=== PATIENT | female | born 1975 | race Hispanic/Latino ===

== ENCOUNTER → 2017-04-08 | Outpatient (CLI) | payer OTHER ==
[~2017-04-08] MED LIST: ETAN50PE SQ; FOLI1TAB15 PO; METH25VI IJ; PRED2.5T PO; [UNRECOGNIZED DRUG - OTHER] PO
== END | disposition home or self-care (01) ==
LOC: SHCH 13:56
PROVIDERS: ATTEND Internal Medicine Cardiovascular Disease
DX: R07.9 Chest pain, unspecified (principal)
CPT/HCPCS: 93306

== ENCOUNTER → 2017-04-15 | Outpatient (CLI) | payer OTHER ==
[~2017-04-15] VITALS: Ht 172.7 cm; Wt 99.8 kg
[~2017-04-15] MED LIST changes: +REGADENOSON 0.4 MG/5 ML PF SYG IVP SCH
== END | disposition home or self-care (01) ==
LOC: SHCH 08:20
PROVIDERS: ATTEND Internal Medicine Cardiovascular Disease
DX: R07.9 Chest pain, unspecified (principal)
CPT/HCPCS: 78452; 93017; 96374; A9500 ×2; J2785

== ENCOUNTER 2018-02-23 13:19 | Emergency (ER) | payer OTHER ==
[~2018-02-23 13:19] MED LIST changes: -REGADENOSON 0.4 MG/5 ML PF SYG IVP SCH
[2018-02-23 14:47] LABS: BASOPHILS % (AUTO) 0.5 % (0.0-5.0); EOSINOPHILS % (AUTO) 1.5 % (0.0-8.0); HEMATOCRIT 33.2 % (36-48); LYMPHOCYTES % (AUTO) 18.2 % (21.0-51.0); MEAN CORPUSCULAR HEMOGLOBIN 26.2 pg (27.0-33.0); MEAN CORPUSCULAR HGB CONC 32.5 g/dL (32.0-36.0); MEAN CORPUSCULAR VOLUME 80.5 fL (79-99); MONOCYTES % (AUTO) 8.3 % (3.0-13.0); NEUTROPHILS % (AUTO) 71.5 % (40.0-77.0); PLATELET COUNT (AUTO) 222 K/uL (130-400); RED BLOOD CELL COUNT(AUTO) 4.13 MIL/uL (4.00-5.50); RED CELL DISTRIBUTION WIDTH 16.7 % (11.0-15.5); WHITE BLOOD COUNT (AUTO) 7.7 K/uL (4.8-10.8)
[2018-02-23 15:04] LABS: CREATININE 0.9 mg/dL (0.5-1.5); POTASSIUM 3.9 mmol/L (3.5-5.1)
[2018-02-23 15:08] LABS: ALBUMIN 3.1 g/dL (3.5-5.0); BILIRUBIN,DIRECT 0.1 mg/dL (0.0-0.3); BILIRUBIN,TOTAL 0.3 mg/dL (0.2-1.0); TOTAL PROTEIN, SERUM 7.6 g/dL (6.0-8.3)
[2018-02-23] MEDS ORDERED: METHYLPREDNISOLONE SOD SUCC 40MG/ML 1ML ONE (15:26)
[2018-02-23] MEDS ORDERED: MORPHINE SULFATE 4 MG/1ML SYG ONE (15:35)
[2018-02-23] MEDS ORDERED: ONDANSETRON HCL 4 MG/2 ML VIAL ONE (15:35)
[2018-02-23 17:40] LABS: APPEARANCE,URINE Clear (CLEAR); BILIRUBIN,URINE Negative (NEGATIVE); COLOR,URINE Yellow (YELLOW); GLUCOSE, URINE (UA) >=1000 mg/dL (NEGATIVE); KETONES,URINE Negative (NEGATIVE); LEUKOCYTE ESTERASE ,URINE Trace (NEGATIVE); NITRATE,URINE Negative (NEGATIVE); OCCULT BLOOD,URINE Small (NEGATIVE); PH,URINE 5.5 (5.0-8.0); PROTEIN,URINE Negative (NEGATIVE); UROBILINOGEN,URINE 0.2 mg/dL (0.2-1.0)
[2018-02-23 17:41] LABS: HCG,QUAL RESULT NEGATIVE (NEGATIVE)
[2018-02-23 18:20] LABS: BACTERIA,URINE Rare /HPF (None Seen)
== END 2018-02-23 18:52 | disposition home or self-care (01) ==
LOC: EDH 13:19
DX: M06.9 Rheumatoid arthritis, unspecified (principal); M79.602 Pain in left arm; E11.9 Type 2 diabetes mellitus without complications; Z90.49 Acquired absence of other specified parts of digestive tract
CPT/HCPCS: 36415; 72125; 80048; 80076; 81001; 81025; 82550; 83690; 84484 ×2; 85025; 85651; 86140; 93005 ×2; 96374; 96375; 99284; J2270; J2405; J2920

== ENCOUNTER 2018-09-16 19:00 | Emergency (ER) | payer OTHER ==
[2018-09-16 19:49] LABS: BASOPHILS % (AUTO) 0.8 % (0.0-5.0); EOSINOPHILS % (AUTO) 1.5 % (0.0-8.0); HEMATOCRIT 30.2 % (36-48); LYMPHOCYTES % (AUTO) 16.9 % (21.0-51.0); MEAN CORPUSCULAR HEMOGLOBIN 23.1 pg (27.0-33.0); MEAN CORPUSCULAR HGB CONC 31.8 g/dL (32.0-36.0); MEAN CORPUSCULAR VOLUME 72.6 fL (79-99); NEUTROPHILS % (AUTO) 69.8 % (40.0-77.0); NUCLEATED RED BLOOD CELLS 0.1 % (0.0-0.19); PLATELET COUNT (AUTO) 192 K/uL (130-400); RED BLOOD CELL COUNT(AUTO) 4.17 MIL/uL (4.00-5.50); RED CELL DISTRIBUTION WIDTH 19.2 % (11.0-15.5); WHITE BLOOD COUNT (AUTO) 7.3 K/uL (4.8-10.8)
[2018-09-16 20:01] LABS: CARBON DIOXIDE 23 mmol/L (21-32); CHLORIDE 98 mmol/L (101-111); GLOMERULAR FILTR. RATE CALC 65 mL/min (>60); GLUCOSE,RANDOM 374 mg/dL (70-105); POTASSIUM 3.6 mmol/L (3.5-5.1); SODIUM SERUM 132 mmol/L (136-145); UREA NITROGEN, BLOOD 16 mg/dL (7-18)
[2018-09-16 20:02] LABS: INR 0.94 (0.85-1.15); PARTIAL THROMBOPLASTIN TIME 21.6 SEC (26.3-35.5); PROTHROMBIN TIME 9.9 SEC (9.6-11.6)
[2018-09-16 20:08] LABS: APPEARANCE,URINE Clear (CLEAR); BILIRUBIN,URINE Negative (NEGATIVE); COLOR,URINE Yellow (YELLOW); GLUCOSE, URINE (UA) >=1000 mg/dL (NEGATIVE); KETONES,URINE Negative (NEGATIVE); LEUKOCYTE ESTERASE ,URINE Trace (NEGATIVE); NITRATE,URINE Negative (NEGATIVE); OCCULT BLOOD,URINE Negative (NEGATIVE); PH,URINE 5.5 (5.0-8.0); PROTEIN,URINE POS 1+ mg/dL (NEGATIVE); UROBILINOGEN,URINE 0.2 mg/dL (0.2-1.0)
[2018-09-16 20:11] LABS: ALANINE AMINOTRANSFERASE 31 U/L (12-78); ALBUMIN 2.9 g/dL (3.5-5.0); AMYLASE 27 U/L (25-115); ASPARTATE AMINOTRANSFERASE 26 U/L (10-37); BILIRUBIN,TOTAL 0.3 mg/dL (0.2-1.0); CREATINE KINASE, TOTAL 69 U/L (21-232); HCG,QUANTITATIVE 1 mIU/mL (0-5); LIPASE 142 U/L (114-286)
[2018-09-16 20:21] LABS: BACTERIA,URINE Rare /HPF (None Seen); RBC,URINE 0-1 /HPF (0-1); SQUAMOUS EPITHELIAL CELL,UR Few /HPF (0-2)
[2018-09-16 20:24] LABS: ALCOHOL, BLOOD < 3 mg/dL (0-10)
[2018-09-16] MEDS ORDERED: KETOROLAC TROMETHAMINE 30MG/ML ONE (22:45)
[2018-09-16] MEDS ORDERED: SODIUM CHLORIDE 0.9% 1000ML 1,000 ML IV ONE (22:46)
== END 2018-09-17 00:10 | disposition home or self-care (01) ==
LOC: EDH 19:00
DX: R07.9 Chest pain, unspecified (principal); E11.65 Type 2 diabetes mellitus with hyperglycemia; R51 Headache; D64.89 Other specified anemias; M25.521 Pain in right elbow; M06.9 Rheumatoid arthritis, unspecified; I10 Essential (primary) hypertension; V49.59XA Passenger injured in collision with other motor vehicles in traffic accident, initial encounter; Y93.89 Activity, other specified; Y92.481 Parking lot as the place of occurrence of the external cause; Y99.8 Other external cause status
CPT/HCPCS: 36415; 71045; 80053; 81001; 82150; 82550; 83690; 84484; 84702; 85025; 85610; 85730; 93005; 96361; 96374; 99285; G0480; J1885; J7030

== ENCOUNTER 2019-02-09 04:13 | Emergency (ER) | payer OTHER ==
[~2019-02-09 04:13] MED LIST changes: -ETAN50PE SQ; +ETAN50PE3 SQ
[2019-02-09] MEDS ORDERED: CLINDAMYCIN HCL 150 MG CAP ONE (05:29)
== END 2019-02-09 05:42 | disposition home or self-care (01) ==
LOC: EDH 04:13
DX: N61.1 Abscess of the breast and nipple (principal); E11.9 Type 2 diabetes mellitus without complications; I10 Essential (primary) hypertension; M19.90 Unspecified osteoarthritis, unspecified site; M06.9 Rheumatoid arthritis, unspecified; Z90.49 Acquired absence of other specified parts of digestive tract

== ENCOUNTER 2024-02-14 15:55 | Emergency (ER) | payer BC ==
[~2024-02-14] VITALS: Ht 172.7 cm; Wt 74.8 kg
[~2024-02-14 15:55] MED LIST changes: +ATEN50TA PO; +INSLAN SQ; +LEFL20TA22 PO; +MAG-55 PO; +METF-444 PO; +OMEP40CA21 PO; +PANT40TA54 PO; +PRED5TAB PO
[2024-02-14 15:59] VITALS: BP 125/79
--- NOTE | 2024-02-14 16:05 | ERN ---
ED Note History of Present Illness Stated Complaint: FLU A Chief Complaint: Cough Time Seen by : 15:57 Dictation: PATIENT IS A 48-YEAR-OLD FEMALE COMING IN HERE WITH SHORTNESS A BREATH COUGH AND BODY ACHES SHE HAS HAD FOR 7-8 DAYS. NO NAUSEA NO VOMITING. SHE STATES SHE SAW HER PRIMARY CARE DOCTOR TODAY WHO DIAGNOSED HER WITH INFLUENZA A BUT ADVISED HER TO COME TO THE EMERGENCY ROOM DUE TO HER CONDITIONS OF DIABETES HYPERTENSION AND RA AND SHE IS VERY WEAK. PATIENT IS TACHYCARDIC IN TRIAGE, HEART RATE 1AND APPEARS VERY ILL. PERSISTENT COUGH NOTED. 3 Allergies: Coded Allergies: No Known Drug Allergies (Verified Allergy, 11/13/12) Home Meds Active Scripts Benzonatate (Tessalon Perles) 100 Mg Cap, 200 MG PO TID for cough, #60 CAP 0 Refills Prov:FUAD VIDALES AMUSEMENT EQUIPMENT OPERATOR 02/14/24 Oseltamivir Phosphate (Tamiflu) 75 Mg Cap, 1 CAP PO BID for 5 Days, #10 CAP 0 Refills Prov:FUAD VIDALES AMUSEMENT EQUIPMENT OPERATOR 02/14/24 Albuterol Sulfate (Ventolin Hfa/Proventil Hfa/Proair Hfa) 90 Mcg Puff, 2 PUFF IH Q4H for WHEEZING, #1 INHALER 0 Refills Prov:FUAD VIDALES NP 02/14/24 Metformin HCl (Metformin HCl) 500 Mg Tablet, 500 MG PO BID, #60 TAB Prov:CHERY SALEEM MD 04/28/23 Insulin Glargine,Hum.rec.anlog (Lantus) 100 Unit/Ml Inj, 15 UNITS SQ DAILY, #100 ML Prov:CHERY SALEEM MD 04/28/23 Omeprazole (Omeprazole) 40 Mg Capsule., 40 MG PO DAILY, #30 CAP Prov:CHERY SALEEM MD 04/28/23 Mag Hydrox/Al Hydrox/Simeth (Maalox Maximum Strength Susp) 400 Mg-400 Mg-40 Mg/5 Ml Oral.susp, 20 ML PO QID, #250 ML Prov:CHERY SALEEM MD 04/28/23 Reported Medications Pantoprazole Sodium (Pantoprazole Sodium) 40 Mg Tablet.dr, 40 MG PO AM, TAB 04/28/23 Atenolol (Atenolol) 50 Mg Tablet, 50 MG PO HS, TAB 3/17/24 Prednisone (Prednisone) 5 Mg Tablet, 5 MG PO HS, TAB 04/28/23 Leflunomide (Leflunomide) 20 Mg Tablet, 20 MG PO HS, TAB 04/28/23 Metformin HCl (Metformin HCl) 500 Mg Tablet, 500 MG PO HS, TAB 04/28/23 Insulin Glargine,Hum.rec.anlog (Lantus) 100 Unit/Ml Inj, 50 UNITS SQ AM, ML 04/28/23 Etanercept (Enbrel) 50 Mg/1 Ml Pen.injctr, 50 MG SQ ONCE WEEKLY, KIT 03/01/15 Methotrexate Sodium/Pf (Methotrexate 250 mg/10 ml Vial) 25 Mg/1 Ml Vial, 25 MG IJ ONCE A WEEK, VIAL 03/01/15 Folic Acid (Folic Acid) 1 Mg Tablet, 1 MG PO DAILY, TAB 03/01/15 Prednisone (Prednisone) 2.5 Mg Tablet, 2.5 MG PO DAILY, TAB 03/01/15 [Hydroxyclor] No Conflict Check, 200 MG PO BID 03/01/15 Past Medical History Past Medical History: Diabetes-Type I, Diabetes-Type II, Hypertension, Other Additional Past Medical Hx: RA, gastroparesis Surgical History: Cholecystectomy Family History: DM, HTN Social History: Negative, Lives with family History: Not Applicable RN Note Reviewed/Agreed w/PFSH: Yes Review of System Dictation CONSTITUTIONAL: NEGATIVE EXCEPT FOR HPI FEVER CHILLS WEAKNESS HEAD/FACE: NEGATIVE EXCEPT FOR HPI EENT: NEGATIVE EXCEPT FOR HPI CLEAR RHINITIS RESPIRATORY: NEGATIVE EXCEPT FOR HPI PERSISTENT COUGH GASTROINTESTINAL/ABDOMINAL: NEGATIVE EXCEPT FOR HPI GENITOURINARY: NEGATIVE EXCEPT FOR HPI MUSCULOSKELETAL: NEGATIVE EXCEPT FOR HPI INTEGUMENTARY: NEGATIVE EXCEPT FOR HPI NEUROLOGICAL/PSYCH: NEGATIVE EXCEPT FOR HPI HEMATOLOGIC/LYMPHATIC: NEGATIVE EXCEPT FOR HPI ALL SYSTEMS NEGATIVE, EXCEPT NOTED ABOVE. 13 POINT REVIEW OF SYSTEMS ASSESSED AND ALL NEGATIVE EXCEPT FOR ABOVE. Initial Vital Sign VS Vital Signs Date Time Temp Pulse Resp B/P (MAP) Pulse Ox O2 Delivery O2 Flow Rate FiO2 02/14/24 15:59 99.9 135 20 125/79 94 Room Air 0 02/14/24 18:49 21 Physical Exam Dictation VITAL SIGNS REVIEWED GENERAL APPEARANCE: ALERT, ORIENTED X 3, MODERATE ACUTE DISTRESS, WELL DEVELOPED, NOURISHED. HEAD AND FACE: NON-TRAUMATIC. EYES: PERRL, PINK CONJUNCTIVAS, EYELID NO TRAUMA, ANTERIOR CHAMBER WITH ARCUS SENILIS. EARS: PINNAS INTACT AND NO SIGNS OF TRAUMA OR ERYTHEMA EAR CANALS CLEAR AND NO DISCHARGE TM NO ERYTHEMA NOSE: DISCHARGE, NO BLEEDING. OROPHARYNX: MOUTH NORMAL, TONGUE PINK, PHARYNX CLEAR, MILD PHARYNGEAL ERYTHEMA, TONSILS NO EXUDATES, NO ABSCESSES NOTED, MUCOUS MEMBRANE MOIST UV[place]A MIDLINE VOICE IS CLEAR NECK: SUPPLE, NON-TENDER, NO THYROMEGALY, NO MASSES, NO JVD, NO BRUITS BREAST:DEFERRED CHEST:NO TENDERNESS, NO CREPITUS, NO PARADOXICAL MOVEMENT, NO RETRACTIONS LUNGS:CLEAR, WELL-VENTILATED, SYMMETRIC, MILD TACHYPNEA, BILATERAL BREATH SOUNDS CLEAR TO AUSCULTATION DIMINISHED BASES HEART: REGULAR RATE, REGULAR RHYTHM, NO MURMUR, NO GALLOPS VASCULAR: NO PERIPHERAL EDEMA, ABDOMEN: SOFT, POSITIVE BOWEL SOUNDS, NONDISTENDED, NO GUARDING, NONTENDER, NO REBOUND, NO MASSES NO HEPATOMEGALY, NO SPLENOMEGALY, NO LÓPEZ'S SIGN, NO HERNIAS. RECTAL: DEFERRED GENITAL: DEFERRED NEUROLOGICAL: NORMAL SPEECH, MOTOR FUNCTION INTACT, SENSORY FUNCTION INTACT MUSCULOSKELETAL: NECK NONTENDER, FULL RANGE OF MOTION, BACK NONTENDER, FULL RANGE OF MOTION, EXTREMITIES: NONTENDER, FULL RANGE OF MOTION SKIN: COLOR PINK, DRY, NO TURGOR, NO RASH, NO LACERATIONS, NO ABRASIONS, NO CONTUSIONS. LYMPHATIC: DEFERRED Results (Laboratory/Radiology) Laboratory/Radiology Laboratory Tests Test 02/14/24 16:10 02/14/24 16:54 02/14/24 18:01 02/14/24 18:26 White Blood Count 3.8 K/uL (4.8-10.8) L Red Blood Count 4.21 MIL/uL (4.00-5.50) Hemoglobin 11.1 g/dL (12.0-16.0) L Hematocrit 33.9 % (36-48) L Mean Corpuscular Volume 80.5 fL (79-99) Mean Corpuscular Hemoglobin 26.4 pg (27.0-33.0) L Mean Corpuscular Hemoglobin Concent 32.7 g/dL (32.0-36.0) Red Cell Distribution Width 15.4 % (11.0-15.5) Platelet Count 233 K/uL (130-400) Mean Platelet Volume 10.6 fL (7.5-10.5) H Immature Granulocyte % (Auto) 0.3 % (0-1) Neutrophils (%) (Auto) 42.5 % (40.0-77.0) Lymphocytes (%) (Auto) 42.0 % (21.0-51.0) Monocytes (%) (Auto) 11.4 % (3.0-13.0) Eosinophils (%) (Auto) 3.5 % (0.0-8.0) Basophils (%) (Auto) 0.3 % (0.0-5.0) Neutrophils # (Auto) 1.6 K/uL (1.8-7.7) L Lymphocytes # (Auto) 1.6 K/uL (1.0-4.8) Monocytes # (Auto) 0.4 K/uL (0.1-1.0) Eosinophils # (Auto) 0.13 K/uL (0.00-0.70) Basophils # (Auto) 0.01 K/uL (0.00-0.20) Absolute Immature Granulocyte (auto 0.01 K/uL (0-1) Nucleated Red Blood Cells 0.0 % (0.0-0.19) Sodium Level 136 mmol/L (136-145) Potassium Level 4.3 mmol/L (3.5-5.1) Chloride Level 101 mmol/L (101-111) Carbon Dioxide Level 23 mmol/L (21-32) Blood Urea Nitrogen 14 mg/dL (7-18) Creatinine 0.8 mg/dL (0.5-1.0) Glomerular Filtration Rate Calc 92 mL/min (>90) Random Glucose 188 mg/dL (70-105) H Lactic Acid Level 1.6 mmol/L (0.8-2.5) Total Calcium 8.2 mg/dL (8.5-10.1) L Influenza Type A Antigen Positive For Type A Influenza Type B Antigen Negative For Type B SARS-CoV-2 Antigen (Rapid) PRESUMPTIVE NEGATIVE Whole Blood Glucose 158 MG/DL (70-110) H Urine Color YELLOW (YELLOW) Urine Appearance CLOUDY (CLEAR) H Urine pH 6.0 (5.0-8.0) Urine Specific [place] 1.022 (1.001-1.031) Urine Protein 300 mg/dL (NEGATIVE) H Urine Glucose (UA) NEGATIVE mg/dL (NEGATIVE) Urine Ketones NEGATIVE mg/dL (NEGATIVE) Urine Occult Blood NEGATIVE (NEGATIVE) Urine Nitrate NEGATIVE (NEGATIVE) Urine Bilirubin NEGATIVE mg/dL (NEGATIVE) Urine Urobilinogen 2.0 mg/dL (0.2-1.0) H Urine Leukocyte Esterase NEGATIVE [place]/uL Urine RBC 2-5 /HPF (0-1) H Urine WBC 2-5 /HPF (0-1) H Urine Squamous Epithelial Cells RARE /HPF (0-2) Urine Bacteria RARE /HPF (None Seen) Urine Granular Casts (Auto) 0-1 /LPF (None Seen) CHEST 1VW REASON: SOB/COUGH COMPARISON: 04/27/2023 FINDINGS: Single view of the chest was obtained. Lungs are clear. Heart size is normal. There is no pulmonary vascular congestion. Mediastinum and bony thorax appear unremarkable. IMPRESSION: 1. Normal single view chest x-ray. Labs Reviewed?: Yes ED Course ED Course Orders Procedure Category Date Status Time Covid19 (Sars Antigen LAB 02/14/24 Complete Rapid) 16:00 Influenza Type A & B, LAB 02/14/24 Complete Rapid 16:00 Acetaminophen 500mg PHA 02/14/24 Complete Tab (Tylenol 500mg T 16:00 Albuterol 0.083% PHA 02/14/24 Complete 2.5mg/3ml (Proventil 16:00 Cbc With Differential LAB 02/14/24 Complete 16:00 Blood Cult VINNY 02/14/24 In Process 16:00 Urinalysis Profile LAB 02/14/24 Complete 16:00 Lactic Acid LAB 02/14/24 Complete 16:00 Basic Metabolic Panel LAB 02/14/24 Complete 16:00 Chest 1vw RAD 02/14/24 Resulted 16:00 0.9%Nacl 1000ml (Ns PHA 02/14/24 Complete 1000ml) 16:00 Methylprednisolone PHA 02/14/24 Complete Succ 125mg (Solu-Medr 17:30 Oseltamivir Phosphate PHA 02/14/24 Complete (Tamiflu) 19:00 Current Medications Medications (Trade) Dose Ordered Sig/Carlos Route PRN Reason Start Time Stop Time Status Last Admin Dose Admin Acetaminophen (TYLenol 500MG TAB) 1,000 mg ONCE ONCE PO 02/14/24 16:00 02/14/24 16:03 DC 02/14/24 16:45 Albuterol Sulfate (Proventil 0.083% 2.5mg/3ml) 5 mg ONCE ONCE IH 02/14/24 16:00 02/14/24 16:03 DC 02/14/24 16:20 Methylprednisolone Sodium Succinate (Solu-medROL 125MG) 125 mg ONCE ONCE IVP 02/14/24 17:30 02/14/24 17:31 DC 02/14/24 17:53 Oseltamivir Phosphate (Tamiflu) 75 mg ONCE ONCE PO 02/14/24 19:00 02/14/24 19:01 DC 02/14/24 19:09 Sodium Chloride 1,000 ml @ 0 mls/hr ONCE ONCE IV 02/14/24 16:00 02/14/24 16:03 DC 02/14/24 16:44 Vital Signs Date Time Temp Pulse Resp B/P (MAP) Pulse Ox O2 Delivery O2 Flow Rate FiO2 02/14/24 18:49 99.0 119 20 99 Room Air* 0 21 02/14/24 16:45 100.0 02/14/24 16:21 118 20 02/14/24 15:59 99.9 135 20 125/79 94 Room Air 0 EIGHTEEN 50, PATIENT STATES SHE FEELS BETTER AFTER FLUIDS SOLU-MEDROL AND ALBUTEROL. SHE IS AWARE THAT THERE IS NO PNEUMONIA AND NO SEPSIS HOWEVER SHE DOES HAVE INFLUENZA A WE WILL BE DISCHARGED HOME WITH RESPIRATORY SUPPORT TAMIFLU AND ALBUTEROL. Medical Decision Making MDM MDM: DIFFERENTIAL DIAGNOSIS: PNEUMONIA/BRONCHITIS/INFLUENZA/SARS COVID, ELECTROLYTE IMBALANCE/DEHYDRATION/SEPSIS RATIONALE: TESTS CONSIDERED AND ORDERED SECONDARY TO SHARED DECISION MAKING INCLUDE: RADIOLOGY/LABS PREVIOUS OUTSIDE RECORDS REVIEWED: OLD ER VISITS. YES RISK OF COMPLICATION AND/OR MORBIDITY OR MORTALITY OF PATIENT MANAGEMENT: NONE MEDICATIONS-PER MEDICATION RECONCILIATION NEED FOR HOSPITALIZATION: PATIENT DOES NOT MEET CRITERIA FOR HOSPITALIZATION. NO NEED FOR EMERGENCY MAJOR/MINOR SURGERY: NO THERE ARE NO SOCIAL CONCERNS WITH THIS PATIENT. PRESCRIPTION DRUG MANAGEMENT TAMIFLU/ALBUTEROL/TESSALON PRESCRIPTIONS WILL INCLUDE SYMPTOMATIC CARE PATIENT'S PRIOR EXTERNAL MEDICAL RECORDS FROM OTHER ER VISITS WERE REVIEWED BY ME INDICATED. PRIOR TESTING AND RESULTS FROM PREVIOUS VISITS WERE REVIEWED. PRIOR TESTS WERE TAKEN INTO ACCOUNT WITH MEDICAL DECISION MAKING AND RESOURCE UTILIZATION, INDEPENDENT HISTORIAN/HISTORIANS WERE USED TO OBTAIN COMPLETE MEDICAL HISTORY. I INDEPENDENTLY INTERPRETED THE TEST THAT WERE PERFORMED, RESULTS WERE REVIEWED BY ME AND CONSIDERED FINDINGS ON RADIOLOGY IF ORDERED. MEDICAL MANAGEMENT AND EXAMINATION INTERPRETATION DISCUSSIONS WERE HAD BY ME WITH OTHER QUALIFIED HEALTHCARE PROFESSIONALS INDICATED FOR THE PATIENT'S CARE. DX & DISP Disposition: Discharge Departure Impression: Primary Impression: Influenza A Condition: Stable Scripts Benzonatate (Tessalon Perles) 100 Mg Cap 200 MG PO TID for cough, #60 CAP 0 Refills Prov: FUAD VIDALES AMUSEMENT EQUIPMENT OPERATOR 02/14/24 Oseltamivir Phosphate (Tamiflu) 75 Mg Cap 1 CAP PO BID for 5 Days, #10 CAP 0 Refills Prov: FUAD VIDALES AMUSEMENT EQUIPMENT OPERATOR 02/14/24 Albuterol Sulfate (Ventolin Hfa/Proventil Hfa/Proair Hfa) 90 Mcg Puff 2 PUFF IH Q4H for WHEEZING, #1 INHALER 0 Refills Prov: FUAD VIDALES AMUSEMENT EQUIPMENT OPERATOR 02/14/24 Additional Instructions: FOLLOW-UP WITH PRIMARY CARE PROVIDER IN 1 TO 2 DAYS. TAKE MEDICATIONS DIRECTED HERE IN THE EMERGENCY ROOM. OKAY TO CONTINUE HOME MEDICATIONS UNLESS OTHERWISE DISCUSSED DURING YOUR VISIT IN THE EMERGENCY ROOM TODAY. RETURN TO YOUR NEAREST EMERGENCY ROOM IF SYMPTOMS WORSEN OR IF THERE IS NO IMPROVEMENT. CALL 911 IF YOU NEED IMMEDIATE ASSISTANCE. TAKE TYLENOL OR MOTRIN OFIP-EOT-DOWHCRI NEEDED AND IF NO CONTRAINDICATIONS ARE PRESENT. INCREASE ORAL HYDRATION. A WOUND CULTURE OR URINE CULTURE WAS ORDERED HERE IN THE EMERGENCY ROOM DEPARTMENT PLEASE FOLLOW-UP WITH PRIMARY CARE PROVIDER AND ADVISE THEM TO GET REPEAT PORTS FROM OUR FACILITY. IF YOU HAD ANY DAVID WRAP/SPLINTS THAT WERE APPLIED HERE, PLEASE DO NOT REMOVE THEM UNTIL YOU SEE YOUR PRIMARY CARE OR SPECIALTY. USE ALBUTEROL EVERY4 HOURS WHILE AWAKE FOR THE NEXT THREE DAYS. , INCREASE YOUR WATER INTAKE. TAKE TAMIFLU DIRECTED UNTIL GONE. Referrals: MARY ANN GODWIN (PCP) Time of Disposition: 18:53 I have reviewed the case, and I agree with, Diagnosis and Plan I performed a substantive portion of the visit. I have reviewed and personally made and approve the management plan that is documented in the notes by myself with EVER/resident. I acknowledged full responsibility for the patient's management plan. FUAD VIDALES NP Feb 14, 2024 16:05 BETTY AGUIRRE DO Feb 15, 2024 17:13
[2024-02-14 16:19] LABS: BASOPHILS # (AUTO) 0.01 K/uL (0.00-0.20); BASOPHILS % (AUTO) 0.3 % (0.0-5.0); EOSINOPHILS # (AUTO) 0.13 K/uL (0.00-0.70); EOSINOPHILS % (AUTO) 3.5 % (0.0-8.0); HEMATOCRIT 33.9 % (36-48); IMMATURE GRANULOCYTE ABSOLUTE 0.01 K/uL (0-1); LYMPHOCYTES # (AUTO) 1.6 K/uL (1.0-4.8); MEAN CORPUSCULAR HEMOGLOBIN 26.4 pg (27.0-33.0); MEAN CORPUSCULAR HGB CONC 32.7 g/dL (32.0-36.0); MEAN CORPUSCULAR VOLUME 80.5 fL (79-99); MONOCYTES # (AUTO) 0.4 K/uL (0.1-1.0); MONOCYTES % (AUTO) 11.4 % (3.0-13.0); NEUTROPHILS # (AUTO) 1.6 K/uL (1.8-7.7); NEUTROPHILS % (AUTO) 42.5 % (40.0-77.0); PLATELET COUNT (AUTO) 233 K/uL (130-400); RED BLOOD CELL COUNT(AUTO) 4.21 MIL/uL (4.00-5.50); RED CELL DISTRIBUTION WIDTH 15.4 % (11.0-15.5); WHITE BLOOD COUNT (AUTO) 3.8 K/uL (4.8-10.8)
[2024-02-14] MEDS: ALBUTEROL 0.083% 2.5 MG/3 ML INH IH ONE (16:20)
[2024-02-14 16:21] VITALS: PULSE 118; RESP 20
--- NOTE | 2024-02-14 16:29 | HMCIMG ---
CHEST 1VW REASON: SOB/COUGH COMPARISON: 04/27/2023 FINDINGS: Single view of the chest was obtained. Lungs are clear. Heart size is normal. There is no pulmonary vascular congestion. Mediastinum and bony thorax appear unremarkable. IMPRESSION: 1. Normal single view chest x-ray.
[2024-02-14 16:39] LABS: CREATININE 0.8 mg/dL (0.5-1.0); POTASSIUM 4.3 mmol/L (3.5-5.1)
[2024-02-14] MEDS: 0.9%NACL 1000ML 1,000 ML IV ONE (16:44)
[2024-02-14] MEDS: acetaMINOPHEN 500 MG TABLET PO ONE (16:45)
[2024-02-14 17:25] LABS: INFLUENZA TYPE B Negative For Type B (NEGATIVE)
[2024-02-14 17:26] LABS: COVID19 (SARS ANTIGEN RAPID) PRESUMPTIVE NEGATIVE (NEGATIVE)
[2024-02-14 17:47] LABS: INFLUENZA TYPE A Positive For Type A (NEGATIVE)
--- NOTE | 2024-02-14 17:47 | NUR ---
FLU A + ERMD MADE AWARE
[2024-02-14] MEDS: Solu-medROL 125MG VIAL IVP ONE (17:53)
[2024-02-14 17:55] VITALS: TEMP 99
[2024-02-14 18:36] LABS: APPEARANCE,URINE CLOUDY (CLEAR); BILIRUBIN,URINE NEGATIVE (NEGATIVE); COLOR,URINE YELLOW (YELLOW); GLUCOSE, URINE (UA) NEGATIVE (NEGATIVE); KETONES,URINE NEGATIVE (NEGATIVE); LEUKOCYTE ESTERASE ,URINE NEGATIVE Leu/uL (NEGATIVE); NITRATE,URINE NEGATIVE (NEGATIVE); OCCULT BLOOD,URINE NEGATIVE (NEGATIVE); PROTEIN,URINE 300 mg/dL (NEGATIVE)
[2024-02-14 18:37] LABS: ADD UA MICROSCOPIC YES
[2024-02-14 18:43] LABS: BACTERIA,URINE RARE /HPF (None Seen); MUCUS,URINE RARE LPF (None Seen); SQUAMOUS EPITHELIAL CELL,UR RARE /HPF (0-2)
[2024-02-14 18:49] VITALS: PULSE 119; RESP 20; TEMP 99; O2SAT 99
[2024-02-14] MEDS ORDERED: ALBUHFA IH (18:54)
[2024-02-14] MEDS ORDERED: BENZ-39 PO (18:54)
[2024-02-14] MEDS ORDERED: OSEL75 PO (18:54)
[2024-02-14] MEDS: OSELTAMIVIR PHOSPHATE 75 MG CAP PO ONE (19:09)
== END 2024-02-14 19:29 | disposition home or self-care (01) ==
LOC: EDH 15:55
DX: J10.1 Influenza due to other identified influenza virus with other respiratory manifestations (principal); E11.43 Type 2 diabetes mellitus with diabetic autonomic (poly)neuropathy; I10 Essential (primary) hypertension; Z20.822 Contact with and (suspected) exposure to COVID-19; Z79.4 Long term (current) use of insulin; Z79.52 Long term (current) use of systemic steroids; Z79.631 Long term (current) use of antimetabolite agent; Z79.69 Long term (current) use of other immunomodulators and immunosuppressants; Z79.84 Long term (current) use of oral hypoglycemic drugs; Z79.899 Other long term (current) drug therapy; Z90.49 Acquired absence of other specified parts of digestive tract
CPT/HCPCS: 99284; 96374; 71045; 96361; 87426; 80048; 85025; 87040 ×2; 87804 ×2; 82948; 83605; 81001; 36415; 94640; J7030; J2919